=== PATIENT | male | born 1955 | race Caucasian/White ===

== ENCOUNTER 2023-12-21 10:51 | Emergency (ER) | payer MEDICARE, SELFPAY ==
[2023-12-21 10:52] VITALS: BP 164/99; PULSE 76; RESP 16; TEMP 37; O2SAT 98; BMI 30.9
--- NOTE | 2023-12-21 11:05 | PC.NURSE ---
Dr. Lee at BS for pt eval
--- NOTE | 2023-12-21 11:18 | XR_ITS ---
FINAL REPORT CLINICAL HISTORY: BLE edema new onset FINDINGS: SINGLE-VIEW CHEST The heart size is normal. The mediastinum is normal. There is mild left base atelectasis. There is no pneumothorax. IMPRESSION: Left base atelectasis. Reviewed, Interpreted and Dictated by Kendell Joseph III, MD Transcribed by La Sawyer Authenticated and [facility]
--- NOTE | 2023-12-21 11:21 | HMH.EDGENADL ---
Discharge Plan Disposition Patient Disposition: Home, Self-Care Condition: Good Referrals Follow up/Referrals: Yoan Gavin MD [Primary Care Provider] - See instructions Activity Restrictions/Add. Instructions Additional Instructions/Restrictions: As discussed, please obtain compression stockings to assist with your lower extremity swelling. I have provided you with a list of providers to establish care with as you will need follow-up with a PCP. If you experience any new or worsening symptoms please return to ED for further evaluation. Clinical Impressions Clinical Impression: Lower extremity edema Instructions Patient Instructions: DI for Edema Due to Venous Stasis, DI for Peripheral Edema -- Bilateral Discharge ED Provider: Antonio Lee Adult HPI General Chief complaint: Extremity Problem,Nontraumatic Stated complaint: both legs swollen Time Seen by Provider: 12/21/23 11:04 Mode of Arrival: Ambulatory Source of Information: Patient Limitations: No Limitations Description of Symptoms (Recalled from ER Triage Doc. by RN): Patient reports bilateral lower leg swelling for the past 3-4 days. States he stopped taking his blood pressure medication thinking that this may be a side effect of the medication. Denies SOB, cough, or fevers. History of Present Illness HPI narrative: 68-year-old male with past medical history significant for hypertension and COPD presents today for evaluation concerning bilateral lower extremity edema present over the past few days. He denies having any shortness of breath or chest pain. Denies any associated injuries. Denies any pain to his lower extremities. States that he did not take his lisinopril over the past 2 days as he thought that it may be contributing to his lower extremity edema. He has no further complaints. Related Data Allergies Allergy/AdvReac Type Severity Reaction Status Date / Time No Known Allergies Allergy Verified 12/21/23 11:02 [facility] Disclaimer: The information contained in this section may have been updated after the patient was seen, as this information can be updated by other users. Social History Smoking Status: Current every day smoker alcohol intake: former current occupational status: employed Travel in the last 8 weeks: None ROS Obtained: Yes All systems reviewed & no additional complaints except as documented Physical Exam General General appearance: alert and in no apparent distress Head Head exam: atraumatic and normocephalic Eye Eye exam: Present normal appearance, PERRL and EOMI ENT ENT exam: Present normal oropharynx and mucous membranes moist Neck Neck exam: Present full ROM; Absent meningismus Chest Chest inspection: Present normal inspection and symmetric chest wall rise; Absent tenderness Respiratory Respiratory exam: Absent respiratory distress, wheezes, stridor or accessory muscle use Cardiovascular Cardiovascular exam: Present normal rhythm Abdominal Exam Abdominal exam: Present soft; Absent distention, tenderness, guarding, rebound or rigidity Extremities Exam Extremities exam: Present normal inspection, full ROM, normal capillary refill and edema (3+ pitting edema in bilateral lower extremities from the knee down. No calf tenderness.); Absent calf tenderness Back Exam Back exam: Present normal inspection; Absent tenderness Neurological Exam Neurological exam: Present alert, oriented X3 and CN II-XII intact; Absent motor sensory deficit Psychiatric Psychiatric exam: Present normal affect and normal mood Skin Skin exam: Present warm and dry Lymphatic Lymphatic Findings: no adenopathy Medical Decision Making Medical Records Medical records reviewed: Yes I reviewed the patient's medical records. Glynn Inquiry Pt receiving controlled substance: No Glynn was queried for this patient: No Vital Signs: 12/21/23 10:52 12/21/23 11:30 12/21/23 12:00 Temperature 98.6 F Temperature Source Oral Pulse Rate 72 80 Pulse Rate [Radial] 76 Respiratory Rate 16 Blood Pressure 175/102 H 164/94 H Blood Pressure [Right Arm] 164/99 H Blood Pressure Mean [Right Arm] 120 Blood Pressure Source [Right Arm] Automatic Cuff Blood Pressure Position [Right Arm] Sitting 02 Sat by Pulse Oximetry 98 99 98 Oxygen Delivery Method Room Air Room Air Room Air 12/21/23 12:30 Temperature Temperature Source Pulse Rate 74 Pulse Rate [Radial] Respiratory Rate Blood Pressure 158/105 H Blood Pressure [Right Arm] Blood Pressure Mean [Right Arm] Blood Pressure Source [Right Arm] Blood Pressure Position [Right Arm] 02 Sat by Pulse Oximetry 99 Oxygen Delivery Method Lab Data Lab Results 12/21/23 11:00: WBC 6.9, RBC 6.13, Hgb 18.0, Hct 55.1 H, MCV 89.9, MCH 29.3, MCHC 32.6, RDW 14.4, Plt Count 149, MPV 9.7, Neut % (Auto) 63.7, Lymph % (Auto) 24.8, [place] % (Auto) 9.0, Eos % (Auto) 1.9, Baso % (Auto) 0.6, Neut # (Auto) 4.4, Lymph # (Auto) 1.7, [place] # (Auto) 0.6, Eos # (Auto) 0.1, Baso # (Auto) 0.0, Sodium 137, Potassium 5.2 H, Chloride 106, Carbon Dioxide 30, Anion Gap 6.2, BUN 11, Creatinine 1.00, Estimated Creat Clear 104, Estimated GFR 74, Est GFR ( Amer) 89, Glucose 90, Calcium 8.6, NT-Pro-B Natriuret Pep < 20.0 12/21/23 12:34: Urine Color Yellow, Urine Appearance Clear, Urine pH 7.0, Ur Specific [place] 1.020, Urine Protein Negative, Urine Glucose (UA) Negative, Urine Ketones Negative, Urine Blood Negative, Urine Nitrate Negative, Urine Bilirubin Negative, Urine Urobilinogen 1.0, Ur Leukocyte Esterase Negative, Urine RBC None, Urine WBC Occasional, Ur Squamous Epith Cells Occasional, Urine Bacteria Trace 12/21/23 11:00 12/21/23 11:00 Orders (Tests/Meds): ED MEDICATIONS Discontinued Medications Generic Name Dose Route Start Last Admin Trade Name Lukasq PRN Reason Stop Dose Admin Lisinopril 40 mg 12/21/23 13:07 Lisinopril 20mg Tablet PO 12/21/23 13:08 ONCE ONE ORDERS Category Date Time Status CXR --portable [XR chest portable] Stat Exams 12/21/23 11:18 Taken BMP [Basic Metabolic Panel] Stat Lab 12/21/23 11:00 Completed BNP [Brain Natriuretic Peptide] Stat Lab 12/21/23 11:00 Completed CBC w/Auto Diff [Complete Blood Count Auto Diff] Stat Lab 12/21/23 11:00 Completed UA [Urinalysis and Microscopic] Stat Lab 12/21/23 12:34 Completed EKG Request [ECG Request] Stat Y 12/21/23 11:18 Ordered ECG Data Tracing #1: I reviewed this ECG and interpreted as documented below: EKG personally interpreted by me. Normal sinus rhythm with a rate of [address] elevations noted to suggest ischemia. Medical Decision Narrative: 68-year-old male with past medical history significant for hypertension and COPD presents today for evaluation concerning bilateral lower extremity edema present over the past few days. He denies having any shortness of breath or chest pain. 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 On assessment he is hemodynamically stable and in no acute distress. Afebrile. Appropriate oxygen saturation on room air. Chest clear to auscultation bilaterally. Abdomen soft nondistended nontender to palpation. He did have 3+ pitting edema in his bilateral lower extremities. There was no calf tenderness. Palpable DP pulses bilaterally. Other physical exam findings unremarkable. Differential diagnoses include but not limited to CHF, renal failure, lymphedema, among others. DVT considered however patient is without calf tenderness bilaterally. Also negative Homans' sign. Patient's lab work is has been nonactionable. No elevation in WBC on CBC. His potassium was noted to be 5.2 however no other significant electrolyte derangements were noted. Creatinine was within range at 1.0. Urinalysis did not show any proteinuria to suggest nephrotic syndrome. BNP was less than 20. Chest x-ray was informally interpreted by me and did not show any acute cardiopulmonary disease processes. No pulmonary edema was noted. On reassessment the patient remains medically stable and in no acute distress. I discussed his ED workup and results and current plan to discharge. He does not have a PCP and so I provided him with a list of providers as he will need to establish care for follow-up concerning his lower extremity edema. I instructed patient to obtain compression stockings to assist with his lower extremity edema as there may be a venous stasis component. He verbalized understanding and agreed with plan. Provided him with return ED precautions. Subsequently discharged home hemodynamically stable and in no acute distress. Procedures Risk/Benefits of Procedure(s) Were Explained: Yes Critical Care Critical Care Time Critical Care Time: No
--- NOTE | 2023-12-21 11:24 | ECG_ITS ---
APPROVED REPORT Exam: Resting ECG HR:72 bpm ECG Measurements Heart Rate 72 AXES DC 149 P 41 QRSd 103 QRS 3 QT 359 T 53 QTc 383 Conclusion SINUS RHYTHM POSSIBLE RIGHT VENTRICULAR CONDUCTION DELAY [RSR (QR) IN V1/V2] BORDERLINE ECG UNCONFIRMED REPORT Electronically signed by : Nick Newell MD 12/21/2023 20:58:04
--- NOTE | 2023-12-21 11:27 | PC.NURSE ---
Dr. Lee at BS to speak with pt
[2023-12-21 11:30] VITALS: BP 175/102; PULSE 72; O2SAT 99
[2023-12-21 11:31] LABS: Chloride 106 mmol/L (98-107); Potassium 5.2 mmoL/L (3.5-5.1); Sodium 137 mmol/L (136-145)
[2023-12-21 11:32] LABS: Basophils % 0.6 % (0.1-2.0); Eosinophils # 0.1 K/mm3 (0.0-0.4); Eosinophils % 1.9 % (0.1-12.0); Hematocrit 55.1 % (42.0-52.0); Lymphocytes # 1.7 K/mm3 (0.7-4.5); Lymphocytes % 24.8 % (10-50); Mean Corpuscular HGB Conc 32.6 g/dL (31.8-35.4); Mean Corpuscular Hemoglobin 29.3 pg (27.0-31.2); Mean Corpuscular Volume 89.9 fl (80-94); Mean Platelet Volume 9.7 fl (7.4-10.4); Monocytes # 0.6 K/mm3 (0.1-1.0); Neutrophils # 4.4 K/mm3 (1.8-7.8); Neutrophils % 63.7 % (37.0-80.0); Platelet Count 149 K/mm3 (142-424); Red Blood Count 6.13 M/mm3 (4.60-6.20); Red Cell Distribution Width 14.4 % (11.5-17.5); White Blood Count 6.9 K/mm3 (4.8-10.8)
[2023-12-21 11:34] LABS: Anion Gap 6.2 mEq/L (5-15); Blood Urea Nitrogen 11 mg/dl (9-20); Calcium 8.6 mg/dl (8.4-10.2); Carbon Dioxide 30 mmol/L (22.0-30.0); Creatinine Clearance Estimated 104 mL/min (50-200); Estimated Glomerular Filt Rate 74 ml/min (>60); GFR (African American) 89 ML/MIN (>60); Glucose 90 mg/dl (74-100)
[2023-12-21 11:43] LABS: NT Pro Brain Natriuretic Pep. < 20.0 pg/mL (0-125)
[2023-12-21 12:00] VITALS: BP 164/94; PULSE 80; O2SAT 98
--- NOTE | 2023-12-21 12:14 | PC.NURSE ---
DR LANDEROS AT BEDSIDE TO UPDATE PT
[2023-12-21 12:30] VITALS: BP 158/105; PULSE 74; O2SAT 99
[2023-12-21 13:02] LABS: Microscopic, Urine URINE MICROSCOPIC (MICROSCOPIC)
[2023-12-21 13:03] LABS: Appearance,Urine CLEAR (Clear); Bilirubin,Urine Negative (Negative); Blood, Urine Negative (Negative); Color,Urine YELLOW (Yellow); Glucose,Urine (UA) Negative (Negative); Ketones,Urine Negative (Negative); Leukocyte Esterase,Urine Negative (Negative); Nitrate,Urine Negative (Negative); Protein,Urine Negative (Negative)
[2023-12-21 13:14] LABS: Bacteria,Urine Trace /lpf; Squamous Epithelial Cell,Urine Occasional #/hpf (0-5); WBC,Urine Occasional #/hpf (0-3)
[2023-12-21] MEDS: LISINOPRIL 20MG TABLET 40 MG PO (13:22)
[2023-12-21 13:27] VITALS: BP 165/99; PULSE 74; RESP 16; TEMP 37; O2SAT 99
== END 2023-12-21 13:28 | disposition home or self-care (01) ==
PROVIDERS: Emergency Provider Emergency Medicine; PCP Family Medicine
DX: R22.43 Localized swelling, mass and lump, lower limb, bilateral (principal); J44.9 Chronic obstructive pulmonary disease, unspecified; F17.210 Nicotine dependence, cigarettes, uncomplicated; I10 Essential (primary) hypertension
CPT/HCPCS: 71045; 80048; 81001; 83880; 85025; 93005; 99284

== ENCOUNTER 2024-04-03 08:02 | Outpatient (CLI) | payer MEDICARE, SELFPAY ==
--- NOTE | 2024-04-03 08:07 | CA_ITS ---
APPROVED REPORT EXAM: Comprehensive 2D, Doppler, and color-flow Echocardiogram Energy Technician: Gracia Ga RT(R) Ht: 6 ft 1 in Wt: 210lbs BSA: 2.20 BP: 142/82 mmHg Indications: edema, COPD, smoker, HTN, AGOSTO 2D Dimensions LVEF (Ruano's) 61.40 % M: 52 - 72 LV Volume 107.90 mL M: 62 - 150 LV Volume Index 49.0 mL/m2 M: 34 - 74 LA Volume 27.70 mL LA Volume Index 12.59 mL/m2 (M/F) 16-34 EF AP4 61.90 % EF AP2 59.8 % EF BP 61.4 % GL Strain -20.6 % M-Mode Dimensions RVDd 3.12 cm (0.9-2.6) LA Diam 3.87 cm (1.9-4.0) LVDd 4.27 cm (3.5-5.7) LVDs 3.32 cm (3.5-5.7) IVSd 0.95 cm (0.6-1.1) PWd 0.75 cm (0.6-1.1) EF (Teich) 45.20% FS 22.20% EDV (Teich) 81.70 mL ESV (Teich) 44.80 mL LV Diastology E Decel Time 190 (160-240 msec) E/A Ratio 0.9 Mitral Valve MV E Max Santana. 77.0 (40-130 cm/s) MV A Velocity 85.0 (40-130 cm/s) E/A Ratio 0.90 MV PHT 56.0 ms Left Ventricle The left ventricle is normal size. The left ventricular systolic function is normal. The left ventricular ejection fraction is within the normal range. There is normal left ventricular wall thickness. There is normal LV segmental wall motion. The left ventricular diastolic function is normal. LVEF is 60%. Right Ventricle The right ventricle is normal size. The right ventricular systolic function is normal. Atria The left atrium size is normal. The right atrium size is normal. There is no Doppler evidence of interatrial shunt. Aortic Valve The aortic valve is mildly thickened. There is no aortic valvular stenosis. Trace aortic regurgitation is present. Mitral Valve The mitral valve is normal in structure. No evidence of mitral valve stenosis. Mild mitral valve regurgitation noted. Tricuspid Valve The tricuspid valve leaflets are thin and pliable. Trace tricuspid regurgitation. There is insufficient TR jet to estimate RVSP. Pulmonic Valve The pulmonary valve is normal in structure. Trace pulmonic regurgitation. Great Vessels The aortic root is normal in size. The ascending aorta is normal in size. IVC is normal in size and collapses >50% with inspiration. Pericardium There is no pericardial effusion. Other Information Study Quality: Adequate Conclusion Normal biventricular systolic function. Mild MR. Electronically signed by : Jenifer Hart MD 04/09/2024 11:21:24
--- NOTE | 2024-04-03 08:07 | US_ITS ---
FINAL REPORT CLINICAL HISTORY: pedal edema, Smoker, DM, HTN COMPARISON: None FINDINGS: ANKLE-BRACHIAL PRESSURE INDICES Pressure indices are as follows: RIGHT LOWER EXTREMITY: Ankle-brachial pressure index: 1.2 Comments: Normal LEFT LOWER EXTREMITY: Ankle-brachial pressure index: 1.2 Comments: Normal CONCLUSION: No evidence of significant obstructive peripheral vascular disease of the lower extremities Reviewed, Interpreted and Dictated by Carlos A Linda MD Transcribed by Erma Plasencia Authenticated and [facility]
== END 2024-04-03 23:59 | disposition home or self-care (01) ==
LOC: RT 08:03
PROVIDERS: PCP Family Medicine; Visit Provider Family Medicine
DX: R60.0 Localized edema (principal); R06.89 Other abnormalities of breathing; I50.9 Heart failure, unspecified; J44.9 Chronic obstructive pulmonary disease, unspecified
CPT/HCPCS: 93306; 93923

== ENCOUNTER 2024-05-16 06:04 | Outpatient (CLI) | payer MEDICARE, SELFPAY ==
--- NOTE | 2024-05-16 07:00 | CT_ITS ---
FINAL REPORT TECHNIQUE: Thin section axial images were obtained from the lung apices to the upper abdomen by computed tomography. Reformatted images were obtained and reviewed. This study was performed with techniques to keep radiation doses al low as reasonably achievable (ALARA). Individualized dose reduction techniques using automated exposure control or adjustment of mA and/or kV according to the patient's size were employed. CLINICAL HISTORY: SCREENING smoker, 2 ppd x 56 years FINDINGS: CHEST CT LOW DOSE CTDI vol (mGy): 2.90 DLP (mGy-cm): 124.02 There is no axillary adenopathy. There is no mediastinal or hilar mass or adenopathy. The heart is normal in size. There is no pericardial or pleural effusion. There is mild emphysema and mild pulmonary scarring. There are several less than 5 mm pulmonary nodules. In the lateral right upper lobe is a 3 mm nodule well seen on image 31. Several calcified granulomas are seen in the left lower lobe. Limited images of the upper abdomen demonstrate cholecystectomy. There are several nonspecific low-attenuation hepatic masses measuring up to 25 mm in the posterior liver dome. IMPRESSION: Lung-RADS category 2 S. Recommend 12 month follow up low dose chest CT. Pulmonary nodules as above. Modifier S: Hepatic masses. Recommend liver mass protocol CT or MRI. Reviewed, Interpreted and Dictated by Kendell Joseph III, MD Transcribed by La Sawyer Authenticated and [facility]
== END 2024-05-16 23:59 | disposition home or self-care (01) ==
PROVIDERS: PCP Family Medicine; Visit Provider Family Medicine
DX: Z87.891 Personal history of nicotine dependence (principal); Z12.2 Encounter for screening for malignant neoplasm of respiratory organs
CPT/HCPCS: 71271

== ENCOUNTER 2024-10-09 08:39 | Outpatient (CLI) | payer MEDICARE, SELFPAY ==
--- NOTE | 2024-10-09 | CT_ITS ---
FINAL REPORT TECHNIQUE: Pre and post contrast images of the abdomen were obtained. IV contrast was administered. Coronal and sagittal reformatted images were also obtained and reviewed.This study was performed with techniques to keep radiation doses as low as reasonably achievable (ALARA). Individualized dose reduction techniques using automated exposure control or adjustment of mA and/or kV according to the patient's size were employed. CLINICAL HISTORY: LIVER MASS COMPARISON: CT low-dose chest 05/16/2024 FINDINGS: There is a calcified granuloma at the left lung base. The heart is normal in size. There are multiple low-attenuation hepatic masses. The largest in the right posterior liver dome measures 2.7 x 2.4 cm. These do not show evidence of contrast-enhancement and are consistent with multiple hepatic cysts. Postcholecystectomy. No evidence of biliary ductal dilatation. The spleen is unremarkable. No adrenal mass is present. The pancreas has an unremarkable appearance. The kidneys are normal, without evidence of mass or hydronephrosis. The aorta is normal in caliber. There is no free fluid or adenopathy. No mass or abnormal fluid collection is seen. The appendix is partially visualized but normal. IMPRESSION: Multiple hepatic masses consistent with cysts. Reviewed, Interpreted and Dictated by Kendell Joseph III, MD Transcribed by Demetra Rincon Authenticated and . [facility]
[2024-10-09 09:04] LABS: Blood Urea Nitrogen 14 mg/dl (9-20); Estimated Glomerular Filt Rate 60 ml/min (>60); GFR (African American) 72 ML/MIN (>60)
[2024-10-09] MEDS: IOPAMIDOL-370 (76%);100ML BOTTLE 75 ML IV (09:24)
[2024-10-09] MEDS: SODIUM CHLORIDE 0.9% 10ML SYR (RAD ONLY) 10 ML IV (09:25)
== END 2024-10-09 23:59 | disposition home or self-care (01) ==
LOC: RAD 08:40
PROVIDERS: PCP Family Medicine; Visit Provider Family Medicine
DX: R16.0 Hepatomegaly, not elsewhere classified (principal)
CPT/HCPCS: 36415; 74170; 82565; 84520; Q9967